=== PATIENT | female | born 1945 | race African-American/Black ===

== ENCOUNTER 2020-02-09 08:01 | Inpatient (IN) | payer MEDICARE, MEDICAID ==
[~2020-02-09] VITALS: Ht 170.2 cm; Wt 50.8 kg
[2020-02-09] MEDS ORDERED: SODIUM CHLORIDE 0.9% 1,000 ML IV ONE (08:28)
[2020-02-09 08:59] LABS: HEMATOCRIT. 30.3 % (36.0-48.0); HEMOGLOBIN. 9.3 g/dL (12.0-16.0); MEAN CORPUSCULAR HEMOGLOBIN 24.2 pg (28.0-32.0); MEAN CORPUSCULAR VOLUME 78.4 fL (81.0-99.0); MEAN PLATELET VOLUME 7.3 fl (7.4-10.4); PLATELET 332 x1000/uL (130-400); RED BLOOD CELL COUNT 3.86 mill/uL (4.2-5.4); RED CELL DISTRIBUTION WIDTH 20.2 % (11.6-14.6)
[2020-02-09 09:12] LABS: CHLORIDE 115 mEq/L (98-107)
[2020-02-09 09:20] LABS: BG BASE EXCESS -3.7 mmol/L (-2.0-2.0); BG CARBOXYHEMOGLOBIN 0.8 % (0.5-1.5); BG DEOXYHEMOGLOBIN 2.5 % (0.0-5.0); BG FRACTION INSPIRED OXYGEN 35; BG METHEMOGLOBIN 0.2 % (0.0-1.5); BG OXYGEN SATURATION 97.5 % (92.0-98.5); BG OXYHEMOGLOBIN 96.5 % (94.0-97.0); BG PCO2 36.1 mmHg (35.0-45.0); BG PH 7.382 (7.350-7.450); BG PO2 96.8 mmHg (75.0-100.0); BG SAMPLE SITE LEFT BRACHIAL; BG TOTAL HEMOGLOBIN 9.1 g/dL (12.0-18.0); BG VENT MODE MASK - AEROSOL
[2020-02-09 09:47] LABS: PLATELET ESTIMATE NORMAL
[2020-02-09] MEDS ORDERED: PIPERACILLIN/TAZ 3.375G PREMIX 50 ML IV ONE (10:15)
[2020-02-09] MEDS ORDERED: VANCOMYCIN 1 G PREMIX 200 ML IV ONE (10:15)
[2020-02-09] MEDS ORDERED: ONDANSETRON HCL 4MG/2ML INJ IV STA (12:20)
[2020-02-09] MEDS ORDERED: MORPHINE SULFATE 4 MG/ML CPJ (NOT FOR IM USE) IV STA (12:20)
[2020-02-09] MEDS ORDERED: IPRATROPIUM/ALBUTEROL 0.5-3(2.5)MG/3ML NEB HHN PRN (12:45)
[2020-02-09] MEDS ORDERED: POTASSIUM CHLORIDE 20MEQ/PACKET PO SCH (12:45)
[2020-02-09 13:38] LABS: CLARITY URINE CLEAR (CLEAR); COLOR URINE YELLOW (YELLOW); KETONES URINE NEGATIVE (NEGATIVE); LEUKOCYTE ESTERASE URINE NEGATIVE (NEGATIVE); NITRITE URINE NEGATIVE (NEGATIVE); OCCULT BLOOD URINE NEGATIVE (NEGATIVE); PH URINE 5.5 (4.5-8.0); PROTEIN URINE NEGATIVE (NEGATIVE); SPECIFIC GRAVITY URINE 1.011 (1.005-1.030); UROBILINOGEN URINE 0.2 E.U./dL (0.2-1.0)
[2020-02-09 13:53] LABS: *AMPHETAMINES SCREEN URINE NEGATIVE (NEGATIVE); *BARBITURATES SCREEN URINE NEGATIVE (NEGATIVE); *BENZODIAZEPINES SCREEN URINE NEGATIVE (NEGATIVE); CANNABINOID URINE SCREEN NEGATIVE (NEGATIVE); OPIATES URINE SCREEN PRESUMTIVE POSITIVE (NEGATIVE); PHENCYCLIDINE URINE SCREEN NEGATIVE (NEGATIVE)
[2020-02-09 13:54] LABS: *COCAINE SCREEN URINE NEGATIVE (NEGATIVE); METHADONE URINE SCREEN NEGATIVE (NEGATIVE)
[2020-02-09 15:09] VITALS: BP 95/67
[2020-02-09 15:19] VITALS: BP 120/85
[2020-02-09 16:00] VITALS: BP 106/61
[2020-02-09] MEDS: IPRATROPIUM/ALBUTEROL 0.5-3(2.5)MG/3ML NEB HHN SCH ×2 (16:34→20:51)
[2020-02-09] MEDS ORDERED: PNEUMOCOCCAL 23-VAL P-SAC VAC 0.5 ML IM ONE (17:30)
[2020-02-09] MEDS ORDERED: BENZONATATE 100MG CAPSULE PO PRN (17:30)
[2020-02-09 18:00] VITALS: BP 118/70
[2020-02-09] MEDS: PIPERACILLIN/TAZOBACTAM 3.375 G in DEXT 5% WATER 100 ML IV SCH ×2 (18:17→23:18)
[2020-02-09] MEDS ORDERED: PHEN50TA PO (18:40)
[2020-02-09] MEDS ORDERED: AMLO5TAB4 MT (18:40)
[2020-02-09] MEDS ORDERED: SYN150 MT (18:40)
[2020-02-09] MEDS ORDERED: PREG75CA PO (18:40)
[2020-02-09] MEDS ORDERED: ASPI-1160 PO (18:40)
[2020-02-09] MEDS ORDERED: DULO30CA52 PO (18:40)
[2020-02-09] MEDS ORDERED: CLOP75TA4 PO (18:40)
[2020-02-09] MEDS: ONDANSETRON HCL 4MG/2ML INJ IV PRN (19:50)
[2020-02-09 20:00] VITALS: BP 122/75
[2020-02-09 22:00] VITALS: BP 101/51
[2020-02-10] VITALS (12 sets, daily range): BP systolic 107–133; BP diastolic 52–74
[2020-02-10] MEDS: PIPERACILLIN/TAZOBACTAM 3.375 G in DEXT 5% WATER 100 ML IV SCH ×3 (05:17→20:34)
[2020-02-10] MEDS: LEVOTHYROXINE SODIUM 150MCG TABLET PO SCH (08:45)
[2020-02-10] MEDS: PHENYTOIN 100 MG/4 ML UDC PO SCH ×2 (08:45→17:09)
[2020-02-10] MEDS: PREGABALIN 75MG CAPSULE PO SCH ×2 (08:45→17:10)
[2020-02-10] MEDS: DULOXETINE HCL 30MG DR CAPSULE PO SCH (08:46)
[2020-02-10] MEDS: CLOPIDOGREL 75MG TABLET PO SCH (08:46)
[2020-02-10] MEDS: ASPIRIN 81MG TABLET PO SCH (08:46)
[2020-02-10] MEDS ORDERED: PHENYTOIN 100 MG PO SCH (09:00)
[2020-02-10] MEDS: IPRATROPIUM/ALBUTEROL 0.5-3(2.5)MG/3ML NEB HHN SCH ×2 (09:12→16:51)
[2020-02-10] MEDS: ONDANSETRON HCL 4MG/2ML INJ IV PRN (09:46)
[2020-02-10] MEDS: ACETAMINOPHEN 325MG TABLET PO PRN ×2 (09:46→17:10)
[2020-02-10] MEDS ORDERED: FLUT1DIS3 INH (13:16)
[2020-02-10] MEDS ORDERED: LEVO500T2 MT (13:16)
[2020-02-10] MEDS ORDERED: ALBU18HF2 IH (13:16)
[2020-02-10] MEDS ORDERED: IPRA3AMP9 NEB (13:16)
[2020-02-10 18:47] LABS: HEMATOCRIT. 23.7 % (36.0-48.0); HEMOGLOBIN. 7.4 g/dL (12.0-16.0); MEAN CORPUSCULAR HEMOGLOBIN 24.5 pg (28.0-32.0); MEAN CORPUSCULAR VOLUME 78.2 fL (81.0-99.0); MEAN PLATELET VOLUME 7.9 fl (7.4-10.4); PLATELET 243 x1000/uL (130-400); RED BLOOD CELL COUNT 3.03 mill/uL (4.2-5.4); RED CELL DISTRIBUTION WIDTH 20.1 % (11.6-14.6)
[2020-02-10 18:55] LABS: CHLORIDE 110 mEq/L (98-107)
[2020-02-10 19:54] LABS: PLATELET ESTIMATE NORMAL
[2020-02-10] MEDS ORDERED: POTASSIUM CHLORIDE 20MEQ TABLET SR PO NR (22:00)
[2020-02-10 23:22] LABS: TOTAL IRON BINDING CAPACITY 335 ug/dL (250-450)
[2020-02-11] VITALS (9 sets, daily range): BP systolic 112–141; BP diastolic 56–90
[2020-02-11] MEDS: IPRATROPIUM/ALBUTEROL 0.5-3(2.5)MG/3ML NEB HHN SCH ×2 (00:58→08:45)
[2020-02-11] MEDS: PIPERACILLIN/TAZOBACTAM 3.375 G in DEXT 5% WATER 100 ML IV SCH ×2 (03:22→08:18)
[2020-02-11] MEDS: PHENYTOIN 100 MG/4 ML UDC PO SCH (08:18)
[2020-02-11] MEDS: ASPIRIN 81MG TABLET PO SCH (08:18)
[2020-02-11] MEDS: LEVOTHYROXINE SODIUM 150MCG TABLET PO SCH (08:18)
[2020-02-11] MEDS: CLOPIDOGREL 75MG TABLET PO SCH (08:18)
[2020-02-11] MEDS: PREGABALIN 75MG CAPSULE PO SCH (08:18)
[2020-02-11] MEDS: DULOXETINE HCL 30MG DR CAPSULE PO SCH (08:18)
[2020-02-11] MEDS ORDERED: DOCUSATE SODIUM 250MG CAPSULE PO SCH (10:15)
[2020-02-11 11:36] LABS: HEMATOCRIT 23.3 % (36.0-48.0); HEMOGLOBIN 7.3 g/dL (12.0-16.0)
[2020-02-11 11:59] LABS: T4 FREE 1.29 ng/dL (0.76-1.46)
[2020-02-11] MEDS ORDERED: FERROUS SULFATE 325MG TABLET PO SCH (13:00)
[2020-02-11] MEDS ORDERED: POTASSIUM CHLORIDE 20MEQ/PACKET PO SCH (13:15)
[2020-02-17] MEDS ORDERED: FURO-151 MT (12:47)
[2020-02-17] MEDS ORDERED: DOCU250C14 MT (12:48)
[2020-02-17] MEDS ORDERED: FERR325T6 MT (12:48)
== END 2020-02-11 17:27 | disposition home or self-care (01) | DRG 133 ==
LOC: EDBD 08:42 → ER 08:42 → 5EST 11:03 → ENRESERV 13:34
PROVIDERS: ADMIT Internal Medicine; ATTEND Internal Medicine
PROC: 0B21XFZ Change Tracheostomy Device in Trachea, External Approach (ICD-10-PCS; principal; 2020-02-09)
DX: J96.20 Acute and chronic respiratory failure, unspecified whether with hypoxia or hypercapnia (principal); J18.9 Pneumonia, unspecified organism; Z93.0 Tracheostomy status; E87.8 Other disorders of electrolyte and fluid balance, not elsewhere classified; D64.9 Anemia, unspecified; E44.1 Mild protein-calorie malnutrition; F17.210 Nicotine dependence, cigarettes, uncomplicated; E87.6 Hypokalemia; I10 Essential (primary) hypertension; E03.9 Hypothyroidism, unspecified; K59.00 Constipation, unspecified; J98.09 Other diseases of bronchus, not elsewhere classified; J44.9 Chronic obstructive pulmonary disease, unspecified; Z79.2 Long term (current) use of antibiotics; Z79.899 Other long term (current) drug therapy; Z86.73 Personal history of transient ischemic attack (TIA), and cerebral infarction without residual deficits; Z68.1 Body mass index [BMI] 19.9 or less, adult
CPT/HCPCS: 36415; 36600; 71045; 80048; 80053; 80305; 81003; 82375; 82728; 82805; 83540; 83550; 83880; 84145; 84439; 84443; 84481; 85014; 85018; 85025; 92610; 93005; 94640; 97162; 99291; J2270; J2405; J2543; J3370; J7030; J7060

== ENCOUNTER 2020-02-21 20:03 | Inpatient (IN) | payer MEDICARE, MEDICAID ==
[~2020-02-21] VITALS: Ht 160 cm; Wt 49.0 kg
[~2020-02-21 20:03] MED LIST: ALBU18HF2 IH; AMLO5TAB4 MT; DOCU250C14 MT; DULO30CA52 PO; FERR325T6 MT; FLUT1DIS3 INH; FURO-151 MT; IPRA3AMP9 NEB; LEVO500T2 MT; PHEN50TA PO; PREG75CA PO
[2020-02-21 21:11] LABS: BG CARBOXYHEMOGLOBIN 2.5 % (0.5-1.5); BG DEOXYHEMOGLOBIN 0.5 % (0.0-5.0); BG FRACTION INSPIRED OXYGEN 100; BG HCO3 ACT 27.5 mmol/L (22.0-26.0); BG METHEMOGLOBIN 0.4 % (0.0-1.5); BG OXYGEN SATURATION 99.5 % (92.0-98.5); BG OXYHEMOGLOBIN 96.6 % (94.0-97.0); BG PCO2 41.7 mmHg (35.0-45.0); BG PH 7.437 (7.350-7.450); BG PO2 194.7 mmHg (75.0-100.0); BG SAMPLE SITE RIGHT RADIAL; BG TOTAL HEMOGLOBIN 10.5 g/dL (12.0-18.0); BG VENT MODE MASK - TRACH
[2020-02-21 21:21] LABS: CHLORIDE 116 mEq/L (98-107)
[2020-02-21 21:22] LABS: INR 1.6; PROTHROMBIN TIME 17.4 sec (9.6-11.0)
[2020-02-21 21:33] LABS: BASOPHILS % 0.7 % (0.0-2.0); EOSINOPHILS % 1.4 % (0.0-5.0); HEMATOCRIT. 31.2 % (36.0-48.0); HEMOGLOBIN. 9.9 g/dL (12.0-16.0); LYMPHOCYTES % 21.1 % (20.0-50.0); MEAN CORPUSCULAR HEMOGLOBIN 25.6 pg (28.0-32.0); MEAN CORPUSCULAR VOLUME 80.8 fL (81.0-99.0); MEAN PLATELET VOLUME 8.5 fl (7.4-10.4); MONOCYTES % 7.7 % (2.0-8.0); NEUTROPHILS % 69.1 % (40.0-76.0); PLATELET 644 x1000/uL (130-400); RED BLOOD CELL COUNT 3.86 mill/uL (4.2-5.4); RED CELL DISTRIBUTION WIDTH 21.3 % (11.6-14.6)
[2020-02-21 21:37] LABS: CLARITY URINE CLEAR (CLEAR); COLOR URINE YELLOW (YELLOW); KETONES URINE TRACE (NEGATIVE); LEUKOCYTE ESTERASE URINE NEGATIVE (NEGATIVE); NITRITE URINE NEGATIVE (NEGATIVE); OCCULT BLOOD URINE NEGATIVE (NEGATIVE); PROTEIN URINE NEGATIVE (NEGATIVE); SPECIFIC GRAVITY URINE 1.015 (1.005-1.030)
[2020-02-21] MEDS ORDERED: KCL 10MEQ/50ML PREMIX 50 ML IV ONE (22:00)
[2020-02-21] MEDS ORDERED: DEXTROSE 50% WATER 50ML SYRINGE IV ONE (22:00)
[2020-02-22] VITALS (7 sets, daily range): BP systolic 105–159; BP diastolic 44–70
[2020-02-22] MEDS ORDERED: ALBU2.5V13 IH (01:23)
[2020-02-22] MEDS: FERROUS SULFATE 325MG TABLET PO SCH ×2 (08:14→16:45)
[2020-02-22] MEDS: DOCUSATE SODIUM 250MG CAPSULE PO SCH ×2 (08:15→16:45)
[2020-02-22] MEDS: DULOXETINE HCL 30MG DR CAPSULE PO SCH (08:15)
[2020-02-22] MEDS: PHENYTOIN SODIUM EXTENDED 100MG CAPSULE PO SCH ×2 (08:15→16:45)
[2020-02-22] MEDS: FUROSEMIDE 40MG TABLET PO SCH (08:15)
[2020-02-22] MEDS: PREGABALIN 75MG CAPSULE PO SCH ×2 (08:15→16:45)
[2020-02-22] MEDS: AMLODIPINE 5MG TABLET PO SCH (08:15)
[2020-02-22] MEDS ORDERED: MEDICATION NOT ON FORMULARY EA (Fluticasone/Salmeterol (Advair 250-50 Diskus) 1 PUFF) INH SCH (09:00)
[2020-02-22] MEDS: IPRATROPIUM/ALBUTEROL 0.5-3(2.5)MG/3ML NEB NEB SCH ×2 (09:50→14:35)
[2020-02-22] MEDS: BUDESONIDE 0.5MG/2ML NEB HHN SCH ×2 (09:50→22:18)
[2020-02-22] MEDS: POTASSIUM CHLORIDE 20MEQ TABLET SR PO SCH (10:00)
[2020-02-23] VITALS: BP 112/52
[2020-02-23 04:00] VITALS: BP 151/67
[2020-02-23 06:58] LABS: HEMATOCRIT. 30.9 % (36.0-48.0); HEMOGLOBIN. 9.8 g/dL (12.0-16.0); MEAN CORPUSCULAR HEMOGLOBIN 25.7 pg (28.0-32.0); MEAN CORPUSCULAR VOLUME 80.6 fL (81.0-99.0); MEAN PLATELET VOLUME 8.2 fl (7.4-10.4); PLATELET 607 x1000/uL (130-400); RED BLOOD CELL COUNT 3.83 mill/uL (4.2-5.4); RED CELL DISTRIBUTION WIDTH 21.2 % (11.6-14.6)
[2020-02-23] MEDS: FERROUS SULFATE 325MG TABLET PO SCH ×2 (07:08→18:06)
[2020-02-23 07:20] LABS: CHLORIDE 103 mEq/L (98-107)
[2020-02-23 08:00] VITALS: BP 144/68
[2020-02-23] MEDS: IPRATROPIUM/ALBUTEROL 0.5-3(2.5)MG/3ML NEB NEB SCH ×2 (08:49→21:08)
[2020-02-23] MEDS: BUDESONIDE 0.5MG/2ML NEB HHN SCH ×2 (08:49→21:08)
[2020-02-23] MEDS: DULOXETINE HCL 30MG DR CAPSULE PO SCH (09:38)
[2020-02-23] MEDS: POTASSIUM CHLORIDE 20MEQ TABLET SR PO SCH (09:38)
[2020-02-23] MEDS: PHENYTOIN SODIUM EXTENDED 100MG CAPSULE PO SCH ×2 (09:38→18:06)
[2020-02-23] MEDS: FUROSEMIDE 40MG TABLET PO SCH (09:38)
[2020-02-23] MEDS: DOCUSATE SODIUM 250MG CAPSULE PO SCH ×2 (09:38→18:07)
[2020-02-23] MEDS: PREGABALIN 75MG CAPSULE PO SCH ×2 (09:38→18:06)
[2020-02-23] MEDS: AMLODIPINE 5MG TABLET PO SCH (09:38)
[2020-02-23 11:07] LABS: PLATELET ESTIMATE INCREASED
[2020-02-23] MEDS ORDERED: IPRA3AMP9 NEB (12:06)
[2020-02-23] MEDS ORDERED: FLUT1DIS3 INH (12:06)
[2020-02-23 12:35] VITALS: BP 140/42
[2020-02-23 16:18] VITALS: BP 120/63
[2020-02-23 20:00] VITALS: BP_SYST 125; BP_SYST 95; BP_DIAS 60; BP_DIAS 71
[2020-02-24] VITALS: BP 143/71
[2020-02-24 04:00] VITALS: BP 131/59
[2020-02-24] MEDS ORDERED: MORPHINE SULFATE 2 MG/ML CPJ (NOT FOR IM USE) IV PRN (04:15)
[2020-02-24] MEDS: FERROUS SULFATE 325MG TABLET PO SCH (06:50)
[2020-02-24 07:48] VITALS: BP 130/75
[2020-02-24 08:00] VITALS: BP 115/53
[2020-02-24] MEDS: POTASSIUM CHLORIDE 20MEQ TABLET SR PO SCH (08:08)
[2020-02-24] MEDS: DULOXETINE HCL 30MG DR CAPSULE PO SCH (08:08)
[2020-02-24] MEDS: PHENYTOIN SODIUM EXTENDED 100MG CAPSULE PO SCH (08:08)
[2020-02-24] MEDS: DOCUSATE SODIUM 250MG CAPSULE PO SCH (08:08)
[2020-02-24] MEDS: FUROSEMIDE 40MG TABLET PO SCH (08:08)
[2020-02-24] MEDS: PREGABALIN 75MG CAPSULE PO SCH (08:08)
[2020-02-24] MEDS: AMLODIPINE 5MG TABLET PO SCH (08:08)
[2020-02-24] MEDS: IPRATROPIUM/ALBUTEROL 0.5-3(2.5)MG/3ML NEB NEB SCH (09:04)
[2020-02-24] MEDS: BUDESONIDE 0.5MG/2ML NEB HHN SCH (09:04)
== END 2020-02-24 12:15 | disposition home health service (06) | DRG 133 ==
LOC: ER 20:03 → 5WST 22:19 → EDBEDREQTM 22:21 → EDBEDREQ 22:21 → ENRESERV 23:04
PROVIDERS: ADMIT Internal Medicine; ATTEND Internal Medicine
DX: J96.20 Acute and chronic respiratory failure, unspecified whether with hypoxia or hypercapnia (principal); E43 Unspecified severe protein-calorie malnutrition; J18.9 Pneumonia, unspecified organism; I50.23 Acute on chronic systolic (congestive) heart failure; Z93.0 Tracheostomy status; I11.0 Hypertensive heart disease with heart failure; E11.51 Type 2 diabetes mellitus with diabetic peripheral angiopathy without gangrene; E11.649 Type 2 diabetes mellitus with hypoglycemia without coma; E87.8 Other disorders of electrolyte and fluid balance, not elsewhere classified; I27.20 Pulmonary hypertension, unspecified; J44.1 Chronic obstructive pulmonary disease with (acute) exacerbation; D64.9 Anemia, unspecified; E87.6 Hypokalemia; F17.210 Nicotine dependence, cigarettes, uncomplicated; G40.909 Epilepsy, unspecified, not intractable, without status epilepticus; I25.10 Atherosclerotic heart disease of native coronary artery without angina pectoris; J44.0 Chronic obstructive pulmonary disease with (acute) lower respiratory infection; F32.9 Major depressive disorder, single episode, unspecified; E78.00 Pure hypercholesterolemia, unspecified; Z86.73 Personal history of transient ischemic attack (TIA), and cerebral infarction without residual deficits; Z98.61 Coronary angioplasty status; Z87.01 Personal history of pneumonia (recurrent); Z79.84 Long term (current) use of oral hypoglycemic drugs; Z79.899 Other long term (current) drug therapy; Z68.1 Body mass index [BMI] 19.9 or less, adult
CPT/HCPCS: 36415; 36600; 71045; 80048; 80053; 81003; 82375; 82805; 82962; 83605; 83880; 84132; 84484; 85025; 87804; 92610; 93005; 94640; 99291; J2270; J3480; J7626

== ENCOUNTER 2020-03-18 04:46 | Emergency (ER) | payer MEDICARE, MEDICAID ==
[~2020-03-18] VITALS: Ht 162.6 cm; Wt 55.0 kg
[~2020-03-18 04:46] MED LIST changes: +ALBU2.5V13 IH; -LEVO500T2 MT
[2020-03-18 05:50] LABS: BASOPHILS % 0.9 % (0.0-2.0); EOSINOPHILS % 1.9 % (0.0-5.0); HEMOGLOBIN. 12.4 g/dL (12.0-16.0); LYMPHOCYTES % 35.1 % (20.0-50.0); MEAN CORPUSCULAR HEMOGLOBIN 28.1 pg (28.0-32.0); MEAN CORPUSCULAR VOLUME 88.3 fL (81.0-99.0); MEAN PLATELET VOLUME 8.3 fl (7.4-10.4); MONOCYTES % 7.6 % (2.0-8.0); NEUTROPHILS % 54.5 % (40.0-76.0); PLATELET 194 x1000/uL (130-400); RED BLOOD CELL COUNT 4.42 mill/uL (4.2-5.4); RED CELL DISTRIBUTION WIDTH 28.1 % (11.6-14.6)
[2020-03-18 05:51] LABS: CHLORIDE 107 mEq/L (98-107)
[2020-03-18 06:51] VITALS: BP 140/82
[2020-03-18 06:53] LABS: PLATELET ESTIMATE NORMAL
== END 2020-03-18 11:18 | disposition home or self-care (01) ==
LOC: ER 04:46
DX: Z43.0 Encounter for attention to tracheostomy (principal); I11.0 Hypertensive heart disease with heart failure; I50.9 Heart failure, unspecified; I48.91 Unspecified atrial fibrillation; E78.00 Pure hypercholesterolemia, unspecified; J44.9 Chronic obstructive pulmonary disease, unspecified; Z79.01 Long term (current) use of anticoagulants
CPT/HCPCS: 36415; 71045; 80053; 82962; 83880; 84484; 85025; 93005; 99285